=== PATIENT | female | born 1970 | race Caucasian/White ===

== ENCOUNTER → 2020-02-23 | Outpatient (CLI) | payer BC, OTHER ==
[~2020-02-23] MED LIST: CONTRAST GIVEN. MC PRN; GADOTERATE 5 MMOL/10ML VIAL. IVP ONE; IOHEXOL 300 MG/ML 50 ML VIAL. IJ ONE; IOHEXOL 300 MG/ML 50 ML VIAL. INT ART ONE
--- NOTE | 2020-02-23 12:35 | RAD ---
EXAM: Fluoroscopically guided right shoulder injection for MR arthrography. HISTORY: 49-year-old woman with right shoulder pain.. TECHNIQUE: The risks and benefits of the procedure were discussed with the patient and written and verbal consent were obtained. A time out procedure was performed. Fluoroscopic imaging of the right shoulder was performed. The overlying skin was sterilely prepped and infiltrated with 1% lidocaine for local anesthesia. A 22-gauge spinal needle was then advanced into the joint space under fluoroscopic guidance. Intra-articular positioning positioning was confirmed with a small injection of iodinated contrast. 12 mL of 1:200 dilution gadolinium (Dotarem) contrast with saline and iodinated contrast was injected under fluoroscopic control. Instrumentation was withdrawn and a sterile dressing placed. There were no immediate complications. The patient was transferred to the MR suite for additional imaging. Fluoroscopy time 1.2 minutes. 4 images were obtained. Refer to the MR report for additional detail. IMPRESSION: Successful fluoroscopically guided right shoulder injection for MR arthrography. Please refer to the separate MR report for additional detail. Electronically signed by: David Ross MD (02/23/2020 12:32 PM) [id number]
--- NOTE | 2020-02-23 13:17 | RAD ---
MRI arthrogram of the right shoulder HISTORY: Adhesive capsulitis. Impingement syndrome of the right shoulder. TECHNIQUE: After intra-articular contrast injection, coronal T1-weighted, coronal T2 fat suppressed, axial T1 fat-suppressed and sagittal T1 fat-suppressed images are obtained. Aber T1 fat-suppressed images were obtained. Apparently, there was a technical malfunction with the scanner and the remaining sequences could not be obtained, and the obtained sequences are somewhat obscured by excessive noise. FINDINGS: Exam is suboptimal due to the limitations discussed above but there is some diagnostic information. Acromioclavicular joint is degenerative with mild hypertrophy. Rotator cuff tendon thickening and heterogeneous signal compatible with tendinosis. No large rupture or retraction of the supraspinatus or infraspinatus tendon. No high-grade subscapularis tendon tear. No significant fluid or contrast is seen in the subcutaneous acromial subdeltoid bursa. No evidence of labral tear or detachment. No evidence of acute articular cartilage defect. Biceps tendon is intact. No evidence of acute fracture or aggressive bone destruction. Minimal cystic change at the posterior greater tuberosity. IMPRESSION: 1. Suboptimal exam due to MR scanner malfunction. 2. Rotator cuff tendinosis without evidence of a high-grade tear. 3. No evidence of labral tear. 4. Although the exam still contains diagnostic information, if desired, the patient could be sent back for repeat study at no additional charge. Electronically signed by: Nj Bailey MD (02/23/2020 1:14 PM) [id number]
== END ==
LOC: RAD 09:27
PROVIDERS: ATTEND Physician Assistant
DX: M75.111 Incomplete rotator cuff tear or rupture of right shoulder, not specified as traumatic (principal)
CPT/HCPCS: 23350; 73222; 77002; A9575; Q9967; 73040